=== PATIENT | female | born 1985 | race Two or more races ===

== ENCOUNTER 2019-01-29 02:11 | Emergency (ER) | payer SELFPAY ==
[~2019-01-29] VITALS: Ht 167.6 cm; Wt 57.6 kg
[2019-01-29 02:25] VITALS: BP 146/92
== END 2019-01-29 03:42 | disposition home or self-care (01) ==
LOC: ER 02:16
DX: H92.03 Otalgia, bilateral (principal); Z88.1 Allergy status to other antibiotic agents; Z88.8 Allergy status to other drugs, medicaments and biological substances; Z98.890 Other specified postprocedural states
CPT/HCPCS: 99283; A4606